=== PATIENT | male | born 1990 | race Hispanic/Latino ===

== ENCOUNTER 2016-12-22 06:49 | Emergency (ER) | payer OTHER ==
[~2016-12-22] VITALS: Ht 167.6 cm; Wt 88.0 kg
[2016-12-22 06:56] VITALS: BP 119/81; PULSE 61; RESP 18; O2SAT 97
[2016-12-22] MEDS ORDERED: Ketorolac 30 mg/mL 2 mL Inj IM ONE (07:10)
--- NOTE | 2016-12-22 07:10 | ED.REPORT ---
HPI-Back Pain Under 41 Date of Service Dec 22, 2016 ED Provider: Laly Pradhan MD 26yoM with worsening lower back pain since 12/18/2016. 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 He uses a support belt while lifting. He states that since Sunday he has noticed increasing stiffness and sharp stabbing pain in his back. The patient states that he back pain is worse at the end of the day usually however he woke up yesterday and today with a very sore and stiff back. The lower back pain is radiating into his neck now causing stiffness. The patient denies any previous trauma to his back recently, or any event where he immediately noticed a back injury. Nursing Notes Stated Complaint: LOWER BACK PAIN Chief Complaint: Back Pain or Injury Nursing Notes Reviewed: Yes Allergies: Coded Allergies: No Known Allergies (Unverified Allergy, Unknown, 12/22/16) Scheduled PRN Metaxalone (Skelaxin) 800 Mg Tablet 800 MG PO Q8H PRN PRN For Spasm Naproxen (Naproxen) 500 Mg Tab 500 MG PO BID PRN PRN For Pain General Time Seen by MD: 07:06 Chief Complaint Back pain Hx Obtained From: Patient Arrived By: Walk-in Sudden in Onset?: No Onset Occurred: 5 days ago Caused by: Chronic Injury, Lifting Location: : Perispinal lumbar: Spinal thoracic area Quality: Aching, Painful, Stabbing Radiation: : Neck Severity: Current: Moderate Severity: Maximum: Severe Recent Healthcare: No recent doctor visit, No recent hospitalization Similar Sx Previous: No Past Medical History Past Medical History patient denies Past Surgical History patient denies Smoking History Never Smoker Social History Alcohol Use: "Social" Drug Use: Denies drug use Ambulatory Status Independent Review of Systems Basic Review of Systems Eyes: Vision NL, No discharge ENT: Hearing NL, No pain, No nasal congestion, No pharyngeal pain Hematologic: No bleeding, No bruising Endocrine: No cold intolerance, No heat intolerance, No weight gain, No weight loss Skin: No bruising, No rash, No itch Allergy / Immune: No allergy Psychiatric: Normal thought content Constitutional: Denies: Chills, Fever, Weakness - generalized Respiratory: Reports: Shortness of breath (when back pain is severe), Denies: Non-productive cough, Pleuritic pain Cardiovascular: Denies: Chest pain, Palpitations GI: Denies: Abdominal pain, Constipation, Diarrhea, Nausea, Vomiting Male: Denies Dysuria, Denies Hematuria Musculoskeletal: Reports: Back pain, Neck pain, Denies: Extremity pain, Extremity swelling Neurologic: Denies: Change LOC, Confusion Complete sys rev & neg: except as marked. Physical Exam Initial Vital Signs Vital Signs (First) Date Time Temp Pulse Resp B/P Pulse Ox O2 Delivery O2 Flow Rate FiO2 12/22/16 06:56 36.3 61 18 119/81 97 Room Air Initial VS: Reviewed Head / Eyes: Atraumatic, Normocephalic, PERRL ENT: Mucous membranes moist, Conjunctiva normal, No scleral icterus Neck: Supple, Non-tender Respiratory: Breath sounds normal, Clear to auscultation, No respiratory distress Cardiovascular: Heart sounds normal, Intact distal pulses Abdomen / GI: Soft, Non-tender, No guarding, No rebound, No distention Lymphatic: No lymphadenopathy Extremities: Vascular intact, Neuro intact, No swelling, No tenderness Skin: Warm, Dry, No cyanosis Psychiatric: Mood/affect normal, Behavior normal, Normal thought content General/Constitutional: Awake, Alert, Well appearing, Well developed, Cooperative Distress / Hydration: Positive: Distress mild numerous tattoos Flank / Spine / Paraspinal: Positive: Lumbar paraspinal tend..., Thorac paraspinal tend..., Negative: Erythema present, Swelling present Muscle Spasm / ROM: Positive: Lumbar area spasm, ROM decrease - mod, Rhomboid tender R, Thoracic area spasm Neurologic: Oriented X3, Speech NL, No motor deficits, No sensory deficits, Cerebellar NL Focal Weakness: Negative: Lower extremity bilat, Upper extremity bilat Cerebellar Dysfunction: Negative: Dysdiadochokinesis Gait Abnormality: Positive: Shuffling gait patient takes short shuffling steps Neck: Atraumatic, Supple, No swelling, No JVD Meningeal Signs / ROM: Positive: Decreased extension, Rotation decreased L Neck / Muscle Tenderness: Positive: Paraspinal L... patient holds his neck sidebent right and rotated right Respiratory / Chest: Breath sounds NL, Breath sounds = bilat, No respiratory distress, No rales, No rhonchi, No wheezing Cardiovascular: Heart rate NL, Regular rhythm, Heart sounds NL, Peripheral circulation NL Lower Extremity / Pelvis / MS: Inspection NL, No swelling, Non-tender, No erythema, No deformity, Neurologic intact, Vascular intact, No edema Re-Eval/Medical Decision Med Decision/Clinical Course 26yoM with lower back pain worse at night after work. The patient denies any event or injury causing the pain. On physical exam noted spasm in lumbar to cervical paraspinal musculature. Will prescribe short course of muscle relaxants and NSAIDS. Provide Stretching exercises packet. Will have follow up with PCP for further evaluation is no improvement. Counseled Regarding: Diagnosis, Need for follow-up, When/why to return to ED Discharge & Departure Impression: Primary Impression: Low back pain Additional Impressions: Muscle spasm of back Muscle spasms of neck Disposition: Home All VS Reviewed: Yes Condition: Stable Patient Instructions: Acute Low Back Pain (ED), Low Back Strain (ED), Using Good Body Mechanics (GEN) Additional Instructions: During you visit to [facility] Emergency Department we obtained a history of your back pain and preformed a physical exam. It appears that you have a acute muscle spasm in your back likely due to a mild chronic back injury from your daily work activity. Your vital signs were stable and safe for discharge. We will send you home with - Skelaxin muscle relaxants - Naproxen Pain medications These medications are only to be taken as needed for pain. You should avoid using these medications prior to work or other heavy lifting as they will dull the sensation of pain which can result in further injury to your back. When taking Skelaxin muscle relaxant medications DO NOT drive, DO NOT drink alcohol. Please take the Naproxen with food to avoid upset stomach. Do not hesitate to call emergency services or your primary care physician if you experience any of the following. - High unrelenting fevers. - Uncontrolled vomiting. - Severe hypertension. - Syncope or loss of consciousness. - Chest pain or severe shortness of breath. Attached is an [facility] Res[facility] clinic information, please call as soon as possible after your discharge from the Emergency Department and schedule a follow up with a primary care physician in 1-2 weeks time following your emergency department visit for and ED follow up visit. They may prescribe further medication, preform manipulative therapy or acquire MRI imaging to check for further causes of your back pain. Referrals: NOPCP (PCP) [facility] EDSupervising Provider for APC: Cedric Botello MD Attending Statement I discussed patient with resident. I saw and evaluated patient independently. I agree with plan as above. In brief, 26-year-old male with low back pain after lifting heavy objects one week ago. Muscle spasms. No midline tenderness. No red flag symptoms. He does report some left palm numbness this morning which has resolved. We will treat with NSAIDs and muscle relaxers as needed. Follow-up with primary doctor return precautions given. No heavy lifting until symptoms resolve. Follow up with primary doctor in one week for reevaluation. copies to: [facility] Laly Pradhan MD Dec 22, 2016 07:10 Phil Granger DO Dec 22, 2016 09:49 Cedric Botello MD Dec 22, 2016 10:49
[2016-12-22 08:03] VITALS: BP 108/62; PULSE 61; RESP 18; O2SAT 98
[2016-12-22] MEDS ORDERED: NPR500T PO (09:51)
[2016-12-22] MEDS ORDERED: META800T16 PO (09:51)
[2016-12-22 10:30] VITALS: BP 123/72; PULSE 58; RESP 16; O2SAT 98
[2016-12-22 10:58] VITALS: BP 123/72; PULSE 58; RESP 16; O2SAT 98
== END 2016-12-22 10:58 | disposition home or self-care (01) ==
LOC: SED 06:49
DX: M54.5 Low back pain (principal); M62.830 Muscle spasm of back; M62.838 Other muscle spasm
CPT/HCPCS: 96372; 99283; J1885